=== PATIENT | female | born 1970 | race Caucasian/White ===

== ENCOUNTER 2019-06-03 15:35 | Emergency (ER) | payer OTHER ==
[~2019-06-03] VITALS: Ht 165.1 cm; Wt 63.5 kg
[2019-06-03 15:55] VITALS: BP 144/94
[2019-06-03] MEDS ORDERED: ORPH-16 PO (16:42)
[2019-06-03] MEDS ORDERED: PRED20TA PO (16:42)
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
--- NOTE | 2019-06-03 16:46 | RAD ---
Three-view lumbar spine dated 06/03/2019. No comparison available. CLINICAL INDICATION: Pain after injury. FINDINGS: 3 views lumbar spine show normal bony alignment. No displaced fracture. Mild hypertrophic change at the endplates with moderate disc space narrowing at L3-L4 and L4-L5 and L5-S1. Moderate arthrosis lower lumbar apophyseal joints. Spinal stimulator device in place. IMPRESSION: 1. No acute radiographic abnormality. 2. Mild multilevel spondylosis. Electronically signed by: Paresh Ag MD (06/03/2019 4:43 PM) [facility]
== END 2019-06-03 16:53 | disposition home or self-care (01) ==
LOC: ER 15:35
DX: G89.29 Other chronic pain (principal); M54.5 Low back pain; F17.210 Nicotine dependence, cigarettes, uncomplicated; Z88.0 Allergy status to penicillin; Z88.2 Allergy status to sulfonamides; V49.69XA Unspecified car occupant injured in collision with other motor vehicles in traffic accident, initial encounter; Y93.89 Activity, other specified; Y92.89 Other specified places as the place of occurrence of the external cause; Y99.8 Other external cause status
CPT/HCPCS: 72100; 99284